=== PATIENT | male | born 1945 | race Caucasian/White ===

== ENCOUNTER 2019-08-11 10:52 | Emergency (ER) | payer MEDICARE, SELFPAY ==
[2019-08-11 11:02] VITALS: BP 144/98; PULSE 73; RESP 16; TEMP 36.6; O2SAT 100
--- NOTE | 2019-08-11 11:20 | ED.FALL ---
HPI - Fall General Chief Complaint: Fall Stated Complaint: rt arm/wrist/rib pain Time Seen by Provider: 08/11/19 11:20 Source: patient and RN notes reviewed Mode of arrival: ambulatory Limitations: no limitations History of Present Illness HPI Narrative: 74 old male presents with concern for right arm pain, right rib pain since he fell just prior to arrival. Reports falling on his right arm. Reports rib pain that is mild, does not worsen with deep breathing, is not tender. Reports he takes aspirin. Denies head injury. MD complaint: fall Related Data Home Medications Medication Instructions Recorded Confirmed aspirin 81 mg tablet,delayed 81 mg PO DAILY 06/05/19 release carvedilol 3.125 mg tablet 3.125 mg PO Q12H 06/05/19 coenzyme Q10 100 mg capsule 100 mg PO DAILY 06/05/19 hydrochlorothiazide 25 mg tablet 25 mg PO DAILY 06/05/19 losartan 50 mg tablet 50 mg PO DAILY 06/05/19 lutein 20 mg capsule 20 mg PO DAILY 06/05/19 montelukast 10 mg tablet 10 mg PO DAILY 06/05/19 omeprazole 20 mg capsule,delayed 20 mg PO DAILY 06/05/19 release pravastatin 20 mg tablet 20 mg PO DAILY 06/05/19 rivaroxaban 20 mg tablet 20 mg PO DAILY 06/05/19 Allergies Allergy/AdvReac Type Severity Reaction Status Date / Time fluticasone Allergy Unknown Verified 03/01/13 10:17 hydromorphone Allergy Unknown Delirium Verified 06/08/18 10:25 NSAIDS (Non-Steroidal Allergy Unknown Verified 06/08/18 10:28 Anti-Inflamma Penicillins Allergy Unknown Verified 01/10/18 11:37 salmeterol Allergy Unknown Verified 03/01/13 10:17 HYDROMORPHONE HCL AdvReac Intermediate HALLUCINATI Uncoded 04/29/19 09:16 ONS FLUTICASONE PROPIONATE AdvReac Mild SLEEPLESSNE Uncoded 04/29/19 09:16 SS SALMETEROL XINAFOATE AdvReac Mild SLEEPLESSNE Uncoded 04/29/19 09:16 SS Review of Systems Review of Systems: Narrative: CONSTITUTIONAL: Denies malaise, chills, sweats, or fever. CARDIOVASCULAR: Denies chest pain, palpitations, or edema. RESPIRATORY: Denies dyspnea. GASTROINTESTINAL: Denies abdominal pain GENITOURINARY: Denies hematuria. SKIN: Reports right arm swelling, bruising, mild tenderness MUSCULOSKELETAL: Denies back pain NEUROLOGIC: Denies numbness, weakness, or headache. All systems reviewed & are unremarkable except as noted in HPI and below PMFSH Social History Social History Smoking status: Never smoker Alcohol intake: never Comments At time of signature, agree with nursing past medical, surgical, social and family history. There is no relevant family history pertinent to the presenting complaint Exam Narrative: Exam Narrative: GENERAL: Well-appearing, well-nourished, and in no acute distress. HEAD: Normocephalic, atraumatic. EYES: PERRLA, conjunctivae clear NECK: Supple. CHEST: Clear to auscultation. No respiratory distress. HEART: Regular rate and rhythm. No murmur heard. Normal peripheral pulses. EXTREMITIES: Right forearm, wrist, digits of right hand have normal strength and sensation, normal range of motion. 5/5 strength with wrist and digit flexion and extension. Normal sensation with sensitivity to light touch and pain. Soft hematoma noted to the forearm approximately 6 cm x 4 cm in diameter. No open wounds, no skin tenting, no devitalized tissue or atrophy, no trophic changes, no obvious deformity, alignment normal, no point tenderness, nearby joints and structures intact. Distal pulses palpable and equal bilaterally, skin warm, dry, pink. Capillary refill less than 3 seconds. SKIN: Warm, dry, no rash. NEURO: Alert and oriented x3. PSYCH: Normal mood and affect Course Course Emergency Course: Discussed with patient low suspicion at this time for fracture due to minimal tenderness, no deformity, normal neurovascular exam. Patient agrees to no x-ray at this time. Patient understands reasons to follow-up with his doctor if symptoms worsen or do not improve. Patie
== END 2019-08-11 11:34 | disposition home or self-care (01) ==
PROVIDERS: Emergency Provider Nurse Practitioner; PCP Internal Medicine
DX: R07.81 Pleurodynia (principal); S50.11XA Contusion of right forearm, initial encounter; W19.XXXA Unspecified fall, initial encounter; Z86.73 Personal history of transient ischemic attack (TIA), and cerebral infarction without residual deficits; I48.91 Unspecified atrial fibrillation; I10 Essential (primary) hypertension; J45.909 Unspecified asthma, uncomplicated; M19.90 Unspecified osteoarthritis, unspecified site
CPT/HCPCS: 99212; G0463

== ENCOUNTER 2021-03-28 20:17 | Emergency (ER) | payer MEDICARE, SELFPAY ==
[2021-03-28 20:23] VITALS: BP 177/90; PULSE 97; RESP 18; TEMP 36.8; O2SAT 99
--- NOTE | 2021-03-28 21:39 | ED.GENADULT ---
HPI - General Adult General Chief complaint: Extremity Injury, Lower Stated complaint: varicose vein right leg bleeding.on blood thinners Time Seen by Provider: 03/28/21 21:23 History of Present Illness HPI narrative: Patient is a 75-year-old gentleman who presents the emergency department with chief complaint of bleeding varicose vein. Patient reports that he had a varicose vein on the medial aspect of his right lower extremity at the ankle. The patient states that it suddenly started pouring blood from the area patient reports that he applied direct pressure to the area and applied a pressure dressing patient states that he is on blood thinners and reports that he came to the ER active bleeding not stop after 15 minutes. Patient denies chest pain denies shortness of breath denies any other injuries. Patient reports the bleeding is currently controlled Related Data Home Medications Medication Instructions Recorded Confirmed aspirin 81 mg tablet,delayed 81 mg PO DAILY 06/05/19 01/24/21 release coenzyme Q10 100 mg capsule 100 mg PO DAILY 06/05/19 01/24/21 losartan 50 mg tablet 50 mg PO DAILY 06/05/19 01/24/21 lutein 20 mg capsule 20 mg PO DAILY 06/05/19 01/24/21 omeprazole 20 mg capsule,delayed 20 mg PO DAILY 06/05/19 01/24/21 release pravastatin 20 mg tablet 20 mg PO DAILY 06/05/19 01/24/21 rivaroxaban 20 mg tablet 20 mg PO DAILY 06/05/19 01/24/21 Allergies Allergy/AdvReac Type Severity Reaction Status Date / Time fluticasone Allergy Unknown Other Verified 03/28/21 20:27 hydromorphone Allergy Unknown Delirium Verified 03/28/21 20:27 NSAIDS (Non-Steroidal Allergy Unknown Other Verified 03/28/21 20:27 Anti-Inflamma Penicillins Allergy Unknown Palpitation Verified 03/28/21 20:27 s salmeterol Allergy Unknown Other Verified 03/28/21 20:27 HYDROMORPHONE HCL AdvReac Intermediate HALLUCINATI Uncoded 04/29/19 09:16 ONS FLUTICASONE PROPIONATE AdvReac Mild SLEEPLESSNE Uncoded 04/29/19 09:16 SS SALMETEROL XINAFOATE AdvReac Mild SLEEPLESSNE Uncoded 04/29/19 09:16 SS Review of Systems Review of Systems: A 10 system review of systems was completed on the patient and is negative except for what is stated in the HPI. Nursing and ancillary documentation was reviewed. [facility], [facility] Past Medical History Medical History (Updated 03/28/21 @ 21:49 by Brayden Lopez MD) Atrial fibrillation and flutter COPD (chronic obstructive pulmonary disease) Hypertension Pancreatitis Peripheral vascular disease Peripheral vertigo Transient ischemic attack Surgical History Surgical History History of cholecystectomy (~2013) History of femoropopliteal bypass (~2012) Status post total left knee replacement using cement (~06/07/18) Family History Family History Father Hypertension Mother Hypertension Family history of arthritis Other Family history of heart disease in male family member before age 55 Social History Social History Smoking status: Never smoker Alcohol intake: never Exam Narrative: GENERAL: Well-appearing, well-nourished, and in no acute distress. HEAD: Normocephalic, atraumatic. EYES: PERRLA and EOMI. ENT: Nares clear, no rhinorrhea or epistaxis. Mucous membranes moist. NECK: Supple. CHEST: Clear to auscultation. No respiratory distress. HEART: Regular rate and rhythm. No murmur heard. Normal peripheral pulses. ABDOMEN: Soft, nontender, nondistended, normal active bowel sounds. EXTREMITIES: Normal range of motion. No edema. SKIN: Warm, dry, no rash. Small punctate lesion in the medial aspect of the right ankle. At this time there is no bleeding after the dressing was removed and the wound was not lowered NEURO: No focal deficits. Alert and oriented x3. PSYCH: Normal mood and affect. Course
[2021-03-28] MEDS: CELLULOSE OXIDIZED 2 x 3 INCH 1 PKT XX (22:08)
[2021-03-28 22:24] VITALS: PULSE 68; RESP 16; O2SAT 96
== END 2021-03-28 22:25 | disposition home or self-care (01) ==
PROVIDERS: Emergency Provider Emergency Medicine; PCP Internal Medicine
DX: I83.891 Varicose veins of right lower extremity with other complications (principal); I48.91 Unspecified atrial fibrillation; J44.9 Chronic obstructive pulmonary disease, unspecified; I10 Essential (primary) hypertension; I73.9 Peripheral vascular disease, unspecified; Z79.82 Long term (current) use of aspirin; Z79.899 Other long term (current) drug therapy; Z87.19 Personal history of other diseases of the digestive system; Z86.73 Personal history of transient ischemic attack (TIA), and cerebral infarction without residual deficits
CPT/HCPCS: 99283

== ENCOUNTER 2021-04-22 01:28 | Day surgery (SDC) | payer MEDICARE, SELFPAY ==
[2021-04-10 13:24] VITALS: BMI 31.2
[2021-04-22 08:55] VITALS: BP 167/87; PULSE 70; RESP 18; TEMP 36.2; O2SAT 98
[2021-04-22] MEDS: LACTATED RINGERS 1,000 ML 150 ML IV CONT (09:09)
--- NOTE | 2021-04-22 09:21 | WPDANESEPPF ---
Anes - Initial Pre Proc Eval Procedure: Operation Date: 04/22/21 10:00 Proposed Procedures p Colonoscopy - Lázaro Barton MD Date/Time: 04/22/21 09:21 Surgeon: Lázaro Barton MD Pre Op Diagnosis: positive stool hemoccult Patient Data Age: 75 Gender: M Height: 1.91 m Weight: 113.5 kg Last Vital Signs Temp 97.1 F L 04/22/21 08:55 Pulse 70 04/22/21 08:55 Resp 18 04/22/21 08:55 BP 167/87 H 04/22/21 08:55 Pulse Ox 98 04/22/21 08:55 Allergies Allergy/AdvReac Type Severity Reaction Status Date / Time salmeterol Allergy Intermediate Other Verified 04/22/21 08:49 fluticasone Allergy Unknown Other Verified 04/22/21 08:49 hydromorphone AdvReac Severe nightmares Verified 04/22/21 08:49 NSAIDS (Non-Steroidal AdvReac Severe Other Verified 04/22/21 08:49 Anti-Inflamma Penicillins AdvReac Intermediate Palpitation Verified 04/22/21 08:49 s Home Medications Medication Instructions Recorded Confirmed Type aspirin 81 mg tablet,delayed 81 mg PO DAILY 06/05/19 04/10/21 History release coenzyme Q10 100 mg capsule 100 mg PO DAILY 06/05/19 04/10/21 History losartan 50 mg tablet 50 mg PO BID 06/05/19 04/10/21 History lutein 20 mg capsule 20 mg PO DAILY 06/05/19 04/10/21 History omeprazole 20 mg capsule,delayed 20 mg PO DAILY 06/05/19 04/10/21 History release pravastatin 20 mg tablet 20 mg PO DAILY 06/05/19 04/10/21 History rivaroxaban 20 mg tablet 20 mg PO DAILY 06/05/19 04/10/21 History fluticasone propionate 50 1 spray NASAL DAILY #15.8 ml 06/22/19 04/10/21 Rx mcg/actuation nasal spray,suspension montelukast 10 mg tablet 10 mg PO DAILY #90 tablet 12/20/20 04/10/21 Rx Alteril 1 cap PO HS 04/10/21 04/10/21 History albuterol sulfate [ProAir HFA] 1 inh INHALATION Q4H PRN 04/10/21 04/10/21 History budesonide-formoterol [Symbicort] 2 puff INHALATION BID 04/10/21 04/10/21 History carvedilol 6.25 mg PO BID 04/10/21 04/10/21 History hydrochlorothiazide 12.5 mg PO DAILY 04/10/21 04/10/21 History terazosin 5 mg PO HS 04/10/21 04/10/21 History Patient hx anesthesia problems: none Family hx anesthesia problems: none Results Review: All pre-operative results and documents have been reviewed as part of the pre-operative evaluation. [facility] Past Medical History Medical History (Updated 03/29/21 @ 00:00 by [facility]) Atrial fibrillation and flutter COPD (chronic obstructive pulmonary disease) Hypertension Pancreatitis Peripheral vascular disease Peripheral vertigo Transient ischemic attack Surgical History Surgical History History of cholecystectomy (~2013) History of femoropopliteal bypass (~2012) Status post total left knee replacement using cement (~06/07/18) Family History Family History Father Hypertension Mother Hypertension Family history of arthritis Other Family history of heart disease in male family member before age 55 Social History Social History Smoking status: Never smoker Alcohol intake: current Drinks per week: 3 Substance use: never Substance use type: does not use Living arrangements: with family Spiritual care concerns: No Anes - Eval Final PreProcedure Day of Procedure 04/22/21 09:21 Patient weight: obese Heart: regular rate and rhythm Lungs: clear to auscultation Airway: Mallampati scale class III Neurological: alert and oriented Last oral intake: >/= 8 hours ASA classification: III Emergent: no Anesthetic plan: proceed Anesthesia type and monitoring: general GIVS and standard monitoring Results Review: All pre-operative results and documents have been reviewed as part of the pre-operative evaluation. Informed Consent: The patient's anesthetic plan and its attendant risks and benefits were discussed with the patient/
--- NOTE | 2021-04-22 10:21 | PM.HPGS ---
History of Present Illness History of Present Illness Consent: Risks, benefits, and alternatives have been discussed and questions answered. Patient agrees to proceed with procedure. Chief complaint: positive stool hemoccult Narrative: Jean Mcintyre is a 75 year old male here for first colonoscopy, recently had FOBT + Review of Systems Constitutional: Constitutional: Denies headache(s) and Denies weakness Eyes: Eyes: Denies blurry vision ENT: Reports Normal hearing present, Denies headache(s) and Denies neck pain Cardiovascular: Cardiovascular: Denies chest pain and Denies dyspnea Respiratory: Respiratory: Denies dyspnea Gastrointestinal: Gastrointestinal: Reports no additional gastrointestinal complaints Genitourinary: Genitourinary: Denies dysuria Musculoskeletal: Musculoskeletal: Denies neck pain Integumentary/Breasts: Skin/Breast: Denies dry skin Neurologic: Reports Normal hearing present, Denies headache(s) and Denies weakness Psychiatric: Psychiatric: Denies anxiety Endocrine: Endocrine: Denies change in body appearance Hematologic/Lymphatic: Hematologic/Lymphatic: Denies easy bleeding Allergic/Immunologic: Allergic/Immunologic: Denies urticaria PMFSH Past Medical History Medical History (Updated 04/22/21 @ 10:21 by Lázaro Barton MD) Atrial fibrillation and flutter COPD (chronic obstructive pulmonary disease) Hypertension Occult blood positive stool Pancreatitis Peripheral vascular disease Peripheral vertigo Transient ischemic attack Surgical History Surgical History History of cholecystectomy (~2013) History of femoropopliteal bypass (~2012) Status post total left knee replacement using cement (~06/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) Family History Family History Father Hypertension Mother Hypertension Family history of arthritis Other Family history of heart disease in male family member before age 55 Social History Social History Smoking status: Never smoker Alcohol intake: current Drinks per week: 3 Substance use: never Substance use type: does not use Living arrangements: with family Spiritual care concerns: No Meds Home Medications and Allergies Home Medications Medication Instructions Recorded Confirmed Type aspirin 81 mg tablet,delayed 81 mg PO DAILY 06/05/19 04/10/21 History release coenzyme Q10 100 mg capsule 100 mg PO DAILY 06/05/19 04/10/21 History losartan 50 mg tablet 50 mg PO BID 06/05/19 04/10/21 History lutein 20 mg capsule 20 mg PO DAILY 06/05/19 04/10/21 History omeprazole 20 mg capsule,delayed 20 mg PO DAILY 06/05/19 04/10/21 History release pravastatin 20 mg tablet 20 mg PO DAILY 06/05/19 04/10/21 History rivaroxaban 20 mg tablet 20 mg PO DAILY 06/05/19 04/10/21 History fluticasone propionate 50 1 spray NASAL DAILY #15.8 ml 06/22/19 04/10/21 Rx mcg/actuation nasal spray,suspension montelukast 10 mg tablet 10 mg PO DAILY #90 tablet 12/20/20 04/10/21 Rx Alteril 1 cap PO HS 04/10/21 04/10/21 History albuterol sulfate [ProAir HFA] 1 inh INHALATION Q4H PRN 04/10/21 04/10/21 History budesonide-formoterol [Symbicort] 2 puff INHALATION BID 04/10/21 04/10/21 History carvedilol 6.25 mg PO BID 04/10/21 04/10/21 History hydrochlorothiazide 12.5 mg PO DAILY 04/10/21 04/10/21 History terazosin 5 mg PO HS 04/10/21 04/10/21 History Allergies Allergy/AdvReac Type Severity Reaction Status Date / Time salmeterol Allergy Intermediate Other Verified 04/22/21 08:49 fluticasone Allergy Unknown Other Verified 04/22/21 08:49 hydromorphone AdvReac Severe nightmares Verified 04/22/21 08:49 NSAIDS (Non-Steroidal AdvReac Severe Other Verified 04/22/21 08:49 Anti-Inflamma Penicillins AdvReac Intermediate Palpitation Verified 04/22/21 08:49 s Vital Signs Vital Si
[2021-04-22 11:00] VITALS: BP 139/79; PULSE 70; RESP 18; O2SAT 96
[2021-04-22 11:10] VITALS: BP 138/85; PULSE 60; RESP 20; O2SAT 97
[2021-04-22 11:20] VITALS: BP 142/95; PULSE 63; RESP 21; O2SAT 97
== END 2021-04-22 11:25 | disposition home or self-care (01) ==
PROVIDERS: PCP Internal Medicine; Visit Provider Internal Medicine Gastroenterology
PROC: 0DJD8ZZ Inspection of Lower Intestinal Tract, Via Natural or Artificial Opening Endoscopic (ICD-10-PCS; CPT 45378; principal; 2021-04-22 10:00)
DX: R19.5 Other fecal abnormalities (principal); D12.2 Benign neoplasm of ascending colon; K57.30 Diverticulosis of large intestine without perforation or abscess without bleeding; K64.8 Other hemorrhoids; I48.91 Unspecified atrial fibrillation; I48.92 Unspecified atrial flutter; J44.9 Chronic obstructive pulmonary disease, unspecified; I10 Essential (primary) hypertension; I73.9 Peripheral vascular disease, unspecified; Z86.73 Personal history of transient ischemic attack (TIA), and cerebral infarction without residual deficits; E66.9 Obesity, unspecified; Z68.31 Body mass index [BMI] 31.0-31.9, adult; Z79.01 Long term (current) use of anticoagulants; Z79.82 Long term (current) use of aspirin
CPT/HCPCS: 45385; 88305; J7120

== ENCOUNTER 2021-08-25 02:19 | Day surgery (SDC) | payer MEDICARE, SELFPAY ==
[2021-08-19 12:59] VITALS: BMI 31.8
[2021-08-25 07:46] VITALS: BP 178/105; PULSE 72; RESP 18; TEMP 36.8; O2SAT 98
[2021-08-25] MEDS: LACTATED RINGERS 1,000 ML 150 ML IV CONT (08:00)
--- NOTE | 2021-08-25 08:10 | PM.HPGS ---
History of Present Illness History of Present Illness Consent: Risks, benefits, and alternatives have been discussed and questions answered. Patient agrees to proceed with procedure. Chief complaint: FRANCES Narrative: Jean Mcintyre is a 76 year old male with frances, hb 8.3 (using xarelto), denies overt gib. Had screening colonoscopy 2020 that showed small polyps and diverticulosis. Denies abd pain. Review of Systems Constitutional: Constitutional: Denies headache(s) and Denies weakness Eyes: Eyes: Denies blurry vision ENT: Reports Normal hearing present, Denies headache(s) and Denies neck pain Cardiovascular: Cardiovascular: Denies chest pain and Denies dyspnea Respiratory: Respiratory: Denies dyspnea Gastrointestinal: Gastrointestinal: Reports no additional gastrointestinal complaints Genitourinary: Genitourinary: Denies dysuria Musculoskeletal: Musculoskeletal: Denies neck pain Integumentary/Breasts: Skin/Breast: Denies dry skin Neurologic: Reports Normal hearing present, Denies headache(s) and Denies weakness Psychiatric: Psychiatric: Denies anxiety Endocrine: Endocrine: Denies change in body appearance Hematologic/Lymphatic: Hematologic/Lymphatic: Denies easy bleeding Allergic/Immunologic: Allergic/Immunologic: Denies urticaria [facility] Past Medical History Medical History (Updated 08/25/21 @ 08:12 by Lázaro Barton MD) Atrial fibrillation and flutter COPD (chronic obstructive pulmonary disease) Hypertension Iron deficiency anemia Occult blood positive stool Pancreatitis Peripheral vascular disease Peripheral vertigo Transient ischemic attack Surgical History Surgical History History of cholecystectomy (~2013) History of femoropopliteal bypass (~2012) Status post total left knee replacement using cement (~06/07/18) Family History Family History Father Hypertension Mother Hypertension Family history of arthritis Other Family history of heart disease in male family member before age 55 Social History Social History Smoking status: Never smoker Alcohol intake: current Drinks per week: 3 Substance use: never Substance use type: does not use Living arrangements: with family Spiritual care concerns: No Meds Home Medications and Allergies Home Medications Medication Instructions Recorded Confirmed Type aspirin 81 mg tablet,delayed 81 mg PO DAILY 06/05/19 08/19/21 History release coenzyme Q10 100 mg capsule 100 mg PO DAILY 06/05/19 08/19/21 History losartan 50 mg tablet 50 mg PO BID 06/05/19 08/19/21 History lutein 20 mg capsule 20 mg PO DAILY 06/05/19 08/19/21 History omeprazole 20 mg capsule,delayed 20 mg PO DAILY 06/05/19 08/19/21 History release pravastatin 20 mg tablet 20 mg PO DAILY 06/05/19 08/19/21 History rivaroxaban 20 mg tablet 20 mg PO DAILY 06/05/19 08/25/21 History fluticasone propionate 50 1 spray NASAL DAILY #15.8 ml 06/22/19 08/19/21 Rx mcg/actuation nasal spray,suspension montelukast 10 mg tablet 10 mg PO DAILY #90 tablet 12/20/20 08/19/21 Rx Alteril 1 cap PO HS 04/10/21 08/19/21 History albuterol sulfate [ProAir HFA] 1 inh INHALATION Q4H PRN 04/10/21 08/19/21 History hydrochlorothiazide 12.5 mg PO DAILY 04/10/21 08/19/21 History carvedilol 6.25 mg tablet 6.25 mg PO BID #180 tablet 05/26/21 08/19/21 Rx budesonide-formoterol HFA 80 2 puff INHALATION BID #10.2 g 07/28/21 08/19/21 Rx mcg-4.5 mcg/actuation aerosol inhaler terazosin 5 mg capsule 5 mg PO HS #90 cap 07/28/21 08/19/21 Rx ferrous sulfate 325 mg (65 mg 325 mg PO BID #180 tablet 07/30/21 08/19/21 Rx iron) tablet Allergies Allergy/AdvReac Type Severity Reaction Status Date / Time hydromorphone Allergy Severe nightmares Verified 08/25/21 07:44 fluticasone Allergy Intermediate Other Verifi
[2021-08-25 08:22] VITALS: BP 139/75; PULSE 66; RESP 18; O2SAT 97
[2021-08-25 08:32] VITALS: BP 144/89; PULSE 76; RESP 16; O2SAT 95
[2021-08-25 08:42] VITALS: BP 156/89; PULSE 62; RESP 18; O2SAT 97
== END 2021-08-25 08:55 | disposition home or self-care (01) ==
PROVIDERS: PCP Internal Medicine; Visit Provider Internal Medicine Gastroenterology
PROC: 0DJ08ZZ Inspection of Upper Intestinal Tract, Via Natural or Artificial Opening Endoscopic (ICD-10-PCS; CPT 43235; principal; 2021-08-25 08:30)
DX: D50.0 Iron deficiency anemia secondary to blood loss (chronic) (principal); K29.70 Gastritis, unspecified, without bleeding; J44.9 Chronic obstructive pulmonary disease, unspecified; I48.91 Unspecified atrial fibrillation; I10 Essential (primary) hypertension; I73.9 Peripheral vascular disease, unspecified; H81.399 Other peripheral vertigo, unspecified ear; Z86.73 Personal history of transient ischemic attack (TIA), and cerebral infarction without residual deficits; Z90.49 Acquired absence of other specified parts of digestive tract; Z95.5 Presence of coronary angioplasty implant and graft; Z79.01 Long term (current) use of anticoagulants; Z79.82 Long term (current) use of aspirin; Z79.51 Long term (current) use of inhaled steroids
CPT/HCPCS: 43239; 88305; J2001; J2704; J7120

== ENCOUNTER 2021-09-08 06:14 | Outpatient (CLI) | payer MEDICARE, SELFPAY ==
--- NOTE | 2021-08-27 13:36 | PC.NURSE ---
SPOKE WITH DR. HILTON , PT DOES NOT WANT TO TAKE THE MAG.CITRATE AND MAY CANCEL IF HE HAS TOO, DR. HILTON IS OKAY WITH PT NOT DOING THE MAG. CITRATE THE NIGHT BEFORE THE PROCEDURE.
--- NOTE | 2021-09-08 07:07 | SUR.OPER ---
Patient brought to GI Lab. Instructions for patient undergoing Capsule Endoscopy reviewed with patient. Consent form signed. Sensor array applied to patient's abdomen and connected to recorded. Patient swallowed capsule with 12 ozs of water infused with Simethicone. Patient instructed they may have clear liquids at 0845 this AM and eat or drink at 1045 this AM. Patient instructed to return to GI Lab at 1500 this afternoon for removal of recording device and to call [phone] or to return to the hospital if any nausea and vomiting or abdominal pain is experienced.
--- NOTE | 2021-09-08 15:15 | SUR.OPER ---
Patient returned to the GI Lab at 1509 for recorder box removal. Recorder equipment removed intact. Patient voiced no complaints. States they have understanding of instructions. Patient left ambulatory.
== END 2021-09-08 06:15 | disposition home or self-care (01) ==
PROVIDERS: PCP Internal Medicine; Visit Provider Internal Medicine Gastroenterology
PROC: 0DJ07ZZ Inspection of Upper Intestinal Tract, Via Natural or Artificial Opening (ICD-10-PCS; CPT 91110; principal; 2021-09-08 07:00)
DX: D64.9 Anemia, unspecified (principal); K31.7 Polyp of stomach and duodenum
CPT/HCPCS: 91110

== ENCOUNTER → 2021-10-27 08:23 | Outpatient (CLI) | payer MEDICARE, SELFPAY ==
[2021-10-27 12:07] LABS: Influenza A QL RT-PCR Negative (Negative); Influenza B QL RT-PCR Negative (Negative); SARS-CoV-2 RNA PCR Negative
== END ==
PROVIDERS: PCP Internal Medicine; Visit Provider Internal Medicine
DX: Z20.822 Contact with and (suspected) exposure to COVID-19 (principal)
CPT/HCPCS: 87502; C9803; U0003; U0005

== ENCOUNTER 2021-11-05 00:40 | Day surgery (SDC) | payer MEDICARE, SELFPAY ==
[2021-11-03 10:46] VITALS: BMI 30.6
[2021-11-05 08:20] VITALS: BP 137/82; PULSE 64; RESP 18; TEMP 36.2; O2SAT 96; BMI 30.4
[2021-11-05] MEDS: LACTATED RINGERS 1,000 ML 150 ML IV CONT (08:41)
--- NOTE | 2021-11-05 09:15 | WPDANESEPPF ---
Anes - Initial Pre Proc Eval Procedure: Operation Date: 11/05/21 09:30 Proposed Procedures p Esophagogastroduodenoscopy With Push Enteroscopy, Biopsy, Polypectomy - Lázaro Barton MD Date/Time: 11/05/21 09:15 Surgeon: Lázaro Barton MD Pre Op Diagnosis: duodenal polyp, LISA Patient Data Age: 76 Gender: M Height: 1.91 m Weight: 110.3 kg Last Vital Signs Temp 97.2 F L 11/05/21 08:20 Pulse 64 11/05/21 08:20 Resp 18 11/05/21 08:20 BP 137/82 11/05/21 08:20 Pulse Ox 96 11/05/21 08:20 Allergies Allergy/AdvReac Type Severity Reaction Status Date / Time hydromorphone Allergy Severe nightmares Verified 11/05/21 08:30 fluticasone Allergy Intermediate Other Verified 11/05/21 08:30 Penicillins Allergy Intermediate Palpitation Verified 11/05/21 08:30 s salmeterol Allergy Intermediate Other Verified 11/05/21 08:30 NSAIDS (Non-Steroidal AdvReac Severe Other Verified 11/05/21 08:30 Anti-Inflamma Home Medications Medication Instructions Recorded Confirmed Type aspirin 81 mg tablet,delayed 81 mg PO DAILY 06/05/19 11/05/21 History release coenzyme Q10 100 mg capsule 100 mg PO DAILY 06/05/19 11/05/21 History losartan 50 mg tablet 50 mg PO BID 06/05/19 11/05/21 History lutein 20 mg capsule 20 mg PO DAILY 06/05/19 11/05/21 History omeprazole 20 mg capsule,delayed 20 mg PO DAILY 06/05/19 11/05/21 History release pravastatin 20 mg tablet 20 mg PO DAILY 06/05/19 11/05/21 History rivaroxaban 20 mg tablet 20 mg PO DAILY 06/05/19 11/05/21 History fluticasone propionate 50 1 spray NASAL DAILY #15.8 ml 06/22/19 11/05/21 Rx mcg/actuation nasal spray,suspension montelukast 10 mg tablet 10 mg PO DAILY #90 tablet 12/20/20 11/05/21 Rx Alteril 1 cap PO HS 04/10/21 11/05/21 History albuterol sulfate [ProAir HFA] 1 inh INHALATION Q4H PRN 04/10/21 11/05/21 History hydrochlorothiazide 25 mg tablet 12.5 mg PO DAILY #90 tablet 10/20/21 11/05/21 Rx Symbicort 80 mcg-4.5 mcg/actuation 2 puff INHALATION BID #10.2 g NS 10/27/21 11/05/21 Rx HFA aerosol inhaler azithromycin 250 mg tablet See Rx Instructions PO .COMPLEX #6 10/27/21 11/05/21 Rx tablet carvedilol 6.25 mg tablet 6.25 mg PO BID #180 tablet 10/27/21 11/05/21 Rx terazosin 5 mg capsule 5 mg PO HS #90 cap 10/27/21 11/05/21 Rx ferrous sulfate 325 mg (65 mg 325 mg PO BID #180 tablet 10/29/21 11/05/21 Rx iron) tablet Patient hx anesthesia problems: none Family hx anesthesia problems: none Results Review: All pre-operative results and documents have been reviewed as part of the pre-operative evaluation. [facility] Past Medical History Medical History (Updated 08/25/21 @ 08:12 by Lázaro Barton MD) Atrial fibrillation and flutter COPD (chronic obstructive pulmonary disease) Hypertension Iron deficiency anemia Occult blood positive stool Pancreatitis Peripheral vascular disease Peripheral vertigo Transient ischemic attack Surgical History Surgical History History of cholecystectomy (~2013) History of femoropopliteal bypass (~2012) Status post total left knee replacement using cement (~06/07/18) Family History Family History Father Hypertension Mother Hypertension Family history of arthritis Other Family history of heart disease in male family member before age 55 Social History Social History Smoking status: Never smoker Alcohol intake: current Drinks per week: 3 Substance use: never Substance use type: does not use Living arrangements: with family Spiritual care concerns: No Anes - Eval Final PreProcedure Day of Procedure 11/05/21 09:15 Patient weight: obese Heart: irregular rhythm Lungs: clear to auscultation Airway: Mallampati scale class III Neurological: alert and oriented Last oral intake:
--- NOTE | 2021-11-05 09:49 | PM.HPGS ---
History of Present Illness History of Present Illness Consent: Risks, benefits, and alternatives have been discussed and questions answered. Patient agrees to proceed with procedure. Chief complaint: duodenal polyp, LISA Narrative: Jean Mcintyre is a 76 year old male with recent SB capsule endoscopy shows what seems to be a polyp in distal duodenum- no good explanation for his LISA though other than gastritis in setting of xarelto, denies recent gib. Review of Systems Constitutional: Constitutional: Denies headache(s) and Denies weakness Eyes: Eyes: Denies blurry vision ENT: Reports Normal hearing present, Denies headache(s) and Denies neck pain Cardiovascular: Cardiovascular: Denies chest pain and Denies dyspnea Respiratory: Respiratory: Denies dyspnea Gastrointestinal: Gastrointestinal: Reports no additional gastrointestinal complaints Genitourinary: Genitourinary: Denies dysuria Musculoskeletal: Musculoskeletal: Denies neck pain Integumentary/Breasts: Skin/Breast: Denies dry skin Neurologic: Reports Normal hearing present, Denies headache(s) and Denies weakness Psychiatric: Psychiatric: Denies anxiety Endocrine: Endocrine: Denies change in body appearance Hematologic/Lymphatic: Hematologic/Lymphatic: Denies easy bleeding Allergic/Immunologic: Allergic/Immunologic: Denies urticaria PMF Past Medical History Medical History (Updated 11/05/21 @ 09:50 by Lázaro Barton MD) Atrial fibrillation and flutter COPD (chronic obstructive pulmonary disease) Hypertension Iron deficiency anemia Occult blood positive stool Pancreatitis Peripheral vascular disease Peripheral vertigo Polyp of small intestine Transient ischemic attack Surgical History Surgical History History of cholecystectomy (~2013) History of femoropopliteal bypass (~2012) Status post total left knee replacement using cement (~06/07/18) Family History Family History Father Hypertension Mother Hypertension Family history of arthritis Other Family history of heart disease in male family member before age 55 Social History Social History Smoking status: Never smoker Alcohol intake: current Drinks per week: 3 Substance use: never Substance use type: does not use Living arrangements: with family Spiritual care concerns: No Meds Home Medications and Allergies Home Medications Medication Instructions Recorded Confirmed Type aspirin 81 mg tablet,delayed 81 mg PO DAILY 06/05/19 11/05/21 History release coenzyme Q10 100 mg capsule 100 mg PO DAILY 06/05/19 11/05/21 History losartan 50 mg tablet 50 mg PO BID 06/05/19 11/05/21 History lutein 20 mg capsule 20 mg PO DAILY 06/05/19 11/05/21 History omeprazole 20 mg capsule,delayed 20 mg PO DAILY 06/05/19 11/05/21 History release pravastatin 20 mg tablet 20 mg PO DAILY 06/05/19 11/05/21 History rivaroxaban 20 mg tablet 20 mg PO DAILY 06/05/19 11/05/21 History fluticasone propionate 50 1 spray NASAL DAILY #15.8 ml 06/22/19 11/05/21 Rx mcg/actuation nasal spray,suspension montelukast 10 mg tablet 10 mg PO DAILY #90 tablet 12/20/20 11/05/21 Rx Alteril 1 cap PO HS 04/10/21 11/05/21 History albuterol sulfate [ProAir HFA] 1 inh INHALATION Q4H PRN 04/10/21 11/05/21 History hydrochlorothiazide 25 mg tablet 12.5 mg PO DAILY #90 tablet 10/20/21 11/05/21 Rx Symbicort 80 mcg-4.5 mcg/actuation 2 puff INHALATION BID #10.2 g NS 10/27/21 11/05/21 Rx HFA aerosol inhaler azithromycin 250 mg tablet See Rx Instructions PO .COMPLEX #6 10/27/21 11/05/21 Rx tablet carvedilol 6.25 mg tablet 6.25 mg PO BID #180 tablet 10/27/21 11/05/21 Rx terazosin 5 mg capsule 5 mg PO HS #90 cap 10/27/21 11/05/21 Rx ferrous sulfate 325 mg (65 mg 325 mg PO BID #180 tablet 10/29/21 11/05/21 Rx iron) tablet
[2021-11-05 10:15] VITALS: BP 123/72; PULSE 67; RESP 25; O2SAT 94
[2021-11-05 10:25] VITALS: BP 118/80; PULSE 69; RESP 26; O2SAT 94
[2021-11-05 10:35] VITALS: BP 129/85; PULSE 64; RESP 19; O2SAT 94
== END 2021-11-05 10:49 | disposition home or self-care (01) ==
PROVIDERS: PCP Internal Medicine; Visit Provider Internal Medicine Gastroenterology
PROC: 0DJ08ZZ Inspection of Upper Intestinal Tract, Via Natural or Artificial Opening Endoscopic (ICD-10-PCS; CPT 43235; principal; 2021-11-05 09:30)
DX: K31.7 Polyp of stomach and duodenum (principal); D50.9 Iron deficiency anemia, unspecified; I48.91 Unspecified atrial fibrillation; I48.92 Unspecified atrial flutter; J44.9 Chronic obstructive pulmonary disease, unspecified; I10 Essential (primary) hypertension; I73.9 Peripheral vascular disease, unspecified; Z86.73 Personal history of transient ischemic attack (TIA), and cerebral infarction without residual deficits; Z79.82 Long term (current) use of aspirin; Z79.01 Long term (current) use of anticoagulants; Z79.51 Long term (current) use of inhaled steroids; E66.9 Obesity, unspecified; Z68.30 Body mass index [BMI] 30.0-30.9, adult
CPT/HCPCS: 43236; 43251; 88305; J2704; J7120

== ENCOUNTER 2022-02-08 13:39 | Emergency (ER) | payer MEDICARE, SELFPAY ==
[2022-02-08 13:53] VITALS: BP 176/108; PULSE 61; RESP 16; TEMP 36.6; O2SAT 96
--- NOTE | 2022-02-08 13:54 | ED.CHESTPAIN ---
HPI - Chest Pain General Chief Complaint: Chest Pain Stated Complaint: CHEST PAIN/INDIGESTION Time Seen by Provider: 02/08/22 13:52 Mode of arrival: ambulatory Limitations: no limitations History of Present Illness HPI narrative: 76-year-old male presents with concern for chest pain, indigestion, belching that started at 6 AM. He denies diaphoresis, shortness of breath, pain radiating, nausea, vomiting, diarrhea, back pain. Denies cough or upper respiratory symptoms. He reports he did not take any uaxp-[id number] medications for his symptoms. He reports a history of A. fib, denies any other cardiac history. He denies frequent episodes of chest pain or indigestion in the recent past. He denies any exacerbating or relieving factors to his pain MD complaint: chest pain Related Data Home Medications Medication Instructions Recorded Confirmed aspirin 81 mg tablet,delayed 81 mg PO DAILY 06/05/19 11/05/21 release (Adult Aspirin Regimen) coenzyme Q10 100 mg capsule (Co 100 mg PO DAILY 06/05/19 11/05/21 Q-10) losartan 50 mg tablet 50 mg PO BID 06/05/19 11/05/21 lutein 20 mg capsule 20 mg PO DAILY 06/05/19 11/05/21 omeprazole 20 mg capsule,delayed 20 mg PO DAILY 06/05/19 11/05/21 release pravastatin 20 mg tablet 20 mg PO DAILY 06/05/19 11/05/21 rivaroxaban 20 mg tablet (Xarelto) 20 mg PO DAILY 06/05/19 11/05/21 Alteril 1 cap PO HS 04/10/21 11/05/21 albuterol sulfate 90 mcg/actuation 1 inh inhalation Q4H PRN Shortness 04/10/21 11/05/21 aerosol inhaler (ProAir HFA) Of Breath Or Wheezing Allergies Allergy/AdvReac Type Severity Reaction Status Date / Time hydromorphone Allergy Severe nightmares Verified 02/08/22 13:56 fluticasone Allergy Intermediate Other Verified 02/08/22 13:56 Penicillins Allergy Intermediate Palpitation Verified 02/08/22 13:56 s salmeterol Allergy Intermediate Other Verified 02/08/22 13:56 NSAIDS (Non-Steroidal AdvReac Severe Other Verified 02/08/22 13:56 Anti-Inflamma Review of Systems Review of Systems: CONSTITUTIONAL: Denies malaise, chills, sweats, or fever. ENT: Denies rhinorrhea, congestion, sinus pain, otalgia or sore throat. CARDIOVASCULAR: Reports bilateral anterior chest pain. Denies edema. RESPIRATORY: Denies cough or dyspnea. GASTROINTESTINAL: Denies abdominal pain, nausea, vomiting, diarrhea, bloody, or mucous stools.. Reports indigestion and belching SKIN: Denies rash or itching. MUSCULOSKELETAL: Denies back pain, joint pain, or myalgia. NEUROLOGIC: Denies numbness, weakness, or headache. All systems reviewed & are unremarkable except as noted in HPI and below PMFSH Past Medical History Medical History (Updated 02/08/22 @ 14:24 by Amira Sandoval NP) Atrial fibrillation and flutter COPD (chronic obstructive pulmonary disease) Hypertension Iron deficiency anemia Occult blood positive stool Pancreatitis Peripheral vascular disease Peripheral vertigo Polyp of small intestine Transient ischemic attack Surgical History Surgical History History of cholecystectomy (~2013) History of femoropopliteal bypass (~2012) Status post total left knee replacement using cement (~06/07/18) Family History Family History Father Hypertension Mother Hypertension Family history of arthritis Other Family history of heart disease in male family member before age 55 Social History Social History Smoking status: Never smoker Alcohol intake: current Drinks per week: 3 Substance use: never Substance use type: does not use Spiritual care concerns: No Comments At time of signature, agree with nursing past medical, surgical, social and family history. There is no relevant family history pertinent to the presenting complaint Exam Narrative: GENERAL: Well-appearing, well-nourished, and in no a
[2022-02-08] MEDS: LIDOCAINE HCL 2% VISC SOLN 15 ML UDC PO (14:01)
[2022-02-08] MEDS: MAG HYDROX/AL HYDROX/SIMETH 30 ML UDC PO (14:01)
--- NOTE | 2022-02-08 14:02 | ECG_ITS ---
Measurements Intervals [place] Rate: 60 P: NV: 0 QRS: -17 QRSD: 108 T: 13 QT: 440 QTc: 441 Interpretive Statements ATRIAL FIBRILLATION INCOMPLETE RIGHT BUNDLE BRANCH BLOCK CANNOT RULE OUT SEPTAL INFARCT, AGE INDETERMINATE ABNORMAL ECG Electronically Signed On 02-08-2022 17:21:34 CDT by Poncho COATES
[2022-02-08 14:28] VITALS: BP 156/88; PULSE 67; RESP 16; O2SAT 96
== END 2022-02-08 14:28 | disposition short-term general hospital (02) ==
PROVIDERS: Emergency Provider Nurse Practitioner
DX: R07.9 Chest pain, unspecified (principal); I48.91 Unspecified atrial fibrillation; I45.10 Unspecified right bundle-branch block; J44.9 Chronic obstructive pulmonary disease, unspecified; I10 Essential (primary) hypertension; I73.9 Peripheral vascular disease, unspecified; Z86.73 Personal history of transient ischemic attack (TIA), and cerebral infarction without residual deficits; Z96.652 Presence of left artificial knee joint; Z79.82 Long term (current) use of aspirin; D50.9 Iron deficiency anemia, unspecified
CPT/HCPCS: 93005; 99214; A9270; G0463

== ENCOUNTER 2022-02-08 14:43 | Observation (INO) | payer MEDICARE, SELFPAY ==
[2022-02-08] VITALS (8 sets, daily range): BP systolic 162–180; BP diastolic 57–108; PULSE 64–106; RESP 12–20; TEMP 36.1–36.8; O2SAT 91–100; BMI 31.4
--- NOTE | ~2022-02-08 | XR_ITS ---
EXAMINATION: XR chest 2V Exam Date/Time: 02/08/2022 15:05 CDT HISTORY: chest pain Comparison: 08/08/2018. RESULT: Lines, tubes, and devices: None. Lungs and pleura: Clear. Cardiomediastinal silhouette: Stable. Other: No acute osseous or upper abdominal finding. IMPRESSION: No acute cardiopulmonary process. Reviewed, dictated and finalized at location K.
--- NOTE | 2022-02-08 14:48 | ECG_ITS ---
Rate 57 IN 0 QRSd 111 QT 439 QTc 430 --[place]-- P QRS -25 T 9 ATRIAL FIBRILLATION WITH SLOW VENTRICULAR RESPONSE COMPARED TO ECG 02/08/2022 13:53:05 NO SIGNIFICANT CHANGES Electronically Signed On 02-10-2022 11:34:29 CDT by Abhay COATES
[2022-02-08 17:39] LABS: Basophils Percent Auto 0.4 % (0.2-1.2); Eosinophils Absolute Auto 0.1 K/mm3 (0-0.3); Hematocrit 39.5 % (42.0-52.0); Hemoglobin 13.2 g/dL (14.0-18.0); Immature Granulocyte Absolute 0.01 K/mm3 (0.00-0.031); Immature Granulocyte Percent A 0.2 % (0-0.5); Lymphocytes Absolute Auto 1.29 K/mm3 (0.9-3.2); Lymphocytes Percent Auto 23.2 % (18.3-44.2); Mean Corpuscular HGB Conc 33.4 g/dl (32-36); Mean Corpuscular Hemoglobin 30.5 pg (26-34); Mean Corpuscular Volume 91.2 fl (80-100); Mean Platelet Volume 9.8 fl (7.4-10.4); Monocytes Absolute Auto 0.5 K/mm3 (0.1-0.6); Monocytes Percent Auto 8.1 % (2.6-8.5); Neutrophils Absolute Auto 3.7 K/mm3 (1.3-6.7); Neutrophils Percent Auto 66.1 % (45.5-73.1); Platelet Count Result 206 k/mm3 (150-375); Red Blood Count 4.33 M/mm3 (4.6-6.20); Red Cell Distribution Width 14.2 % (11.5-14.5); White Blood Count 5.6 K/mm3 (4.5-10.0)
[2022-02-08 17:49] LABS: INR 1.5; Prothrombin Time 17.4 Seconds (11.1-14.7)
[2022-02-08 17:50] LABS: Partial Thromboplastin Time 33.8 SECONDS (22.3-36.8)
[2022-02-08 17:54] LABS: Alanine Aminotransferase 28 U/L (6-50); Albumin Level 4.2 g/dL (3.5-5.1); Alkaline Phosphatase 73 U/L (38-126); Anion Gap 11 mmol/L (8-16); Aspartate Amino Transferase 29 U/L (17-59); Bilirubin,Total 1.7 mg/dL (0.2-1.3); Blood Urea Nitrogen 23 mg/dL (9-20); Calcium 8.7 mg/dL (8.4-10.2); Carbon Dioxide 27 mmol/L (22-30); Chloride 104 mmol/L (98-107); Estimated CRCL calculation 95 ml/min; Estimated Glomerular Filt Rate > 60; Glucose 106 mg/dL (65-110); Lipase 34 U/L (23-300); Potassium 3.4 mmol/L (3.4-5.0); Sodium 142 mmol/L (137-145)
[2022-02-08 18:04] LABS: Troponin I < 0.012 ng/mL (0.000-0.034)
[2022-02-08] MEDS: hydrALAZINE HCL 20 MG/ML VIAL 10 MG IV PUSH (18:16)
--- NOTE | 2022-02-08 18:38 | ED.GENADULT ---
HPI - General Adult General Chief complaint: Chest Pain Stated complaint: chest pain Time Seen by Provider: 02/08/22 17:02 History of Present Illness HPI narrative: Patient is a 76-year-old male who presents ER with chest pain. Central and aching. Nonradiating. No known alleviating factors. Denies exertional chest pain. No history of heart disease. Patient's blood pressure significantly elevated in the 200s here. Reports he has taken his home antihypertensives. No diaphoresis/nausea/vomiting. No alleviating factors. Related Data Home Medications Medication Instructions Recorded Confirmed aspirin 81 mg tablet,delayed 81 mg PO DAILY 06/05/19 02/08/22 release (Adult Aspirin Regimen) coenzyme Q10 100 mg capsule (Co 100 mg PO DAILY 06/05/19 02/08/22 Q-10) losartan 50 mg tablet 50 mg PO BID 06/05/19 02/08/22 lutein 20 mg capsule 20 mg PO DAILY 06/05/19 02/08/22 omeprazole 20 mg capsule,delayed 20 mg PO DAILY 06/05/19 02/08/22 release pravastatin 20 mg tablet 20 mg PO DAILY 06/05/19 02/08/22 rivaroxaban 20 mg tablet (Xarelto) 20 mg PO DAILY 06/05/19 02/08/22 Alteril 1 cap PO HS 04/10/21 02/08/22 albuterol sulfate 90 mcg/actuation 1 inh inhalation Q4H PRN Shortness 04/10/21 02/08/22 aerosol inhaler (ProAir HFA) Of Breath Or Wheezing Allergies Allergy/AdvReac Type Severity Reaction Status Date / Time hydromorphone Allergy Severe nightmares Verified 02/08/22 13:56 fluticasone Allergy Intermediate Other Verified 02/08/22 13:56 Penicillins Allergy Intermediate Palpitation Verified 02/08/22 13:56 s salmeterol Allergy Intermediate Other Verified 02/08/22 13:56 NSAIDS (Non-Steroidal AdvReac Severe Other Verified 02/08/22 13:56 Anti-Inflamma Review of Systems Review of Systems: All systems reviewed & are unremarkable except as noted in HPI and below Constitutional: Constitutional: Denies chills, Denies fatigue and Denies fever(s) ENT: Denies nasal congestion and Denies sore throat Cardiovascular: Cardiovascular: Reports chest pain, Denies rapid heart rate and Denies radiating jaw, neck or arm pain Respiratory: Respiratory: Denies cough and Denies dyspnea Gastrointestinal: Gastrointestinal: Denies abdominal pain, Denies nausea and Denies vomiting Musculoskeletal: Musculoskeletal: Denies back pain Neurologic: Denies syncope, Denies headache(s), Denies focal weakness and Denies numbness PMFSH Past Medical History Medical History (Updated 02/08/22 @ 19:28 by Luis Alberto Huerta MD) Atrial fibrillation and flutter COPD (chronic obstructive pulmonary disease) Hypertension Iron deficiency anemia Occult blood positive stool Pancreatitis Peripheral vascular disease Peripheral vertigo Polyp of small intestine Transient ischemic attack Surgical History Surgical History History of cholecystectomy (~2013) History of femoropopliteal bypass (~2012) Status post total left knee replacement using cement (~06/07/18) Family History Family History Father Hypertension Mother Hypertension Family history of arthritis Other Family history of heart disease in male family member before age 55 Social History Social History Smoking status: Never smoker Alcohol intake: current Drinks per week: 3 Substance use: never Substance use type: does not use Spiritual care concerns: No Exam Narrative: GENERAL: Well-appearing, well-nourished, and in no acute distress. HEAD: Normocephalic, atraumatic. Neck: Supple. CHEST: Clear to auscultation. No respiratory distress. HEART: Irregular regular rate and rhythm. Normal peripheral pulses. ABDOMEN: Soft, nontender, nondistended. EXTREMITIES: Normal range of motion. No edema. SKIN: Warm, dry, no rash. NEURO: Alert and oriented x3. PSYCH: Normal mood and affect. Course Course
--- NOTE | 2022-02-08 19:00 | PM.IMHP ---
H&P: HPI History of Present Illness Date/Time: 02/08/2022 19:00 Chief Complaint: Chest pain. Narrative: This is a very pleasant 76-year-old male with hypertension, hyperlipidemia, atrial fibrillation on long-term anticoagulation, peripheral vascular disease, and other comorbidities who presented to the emergency department via private vehicle from home for evaluation of chest pain. Upon waking this morning the patient had diffuse aching pain across the anterior chest which was self-limiting and lasted less than 5 minutes. The pain does not radiate and he has not noticed any significant aggravating or alleviating factors. He denied any significant associated symptoms, specifically he denies sweats, nausea, vomiting, and dizziness. As the day has gone on he has had recurrent episodes of this aching pain and he decided to come in for evaluation. Initially he went to urgent care but was immediately referred to the ER. While in the emergency department, being evaluated by emergency physician Dr. Huerta, he noted that the patient's systolic blood pressure was over 200 for which he gave the patient hydralazine 10 mg IV with improvement. This blood pressure was not documented in the chart, however. Readings this high are very unusual for the patient who reports that his blood pressures usually in the 130s to 140s over 80s. At the time of my evaluation he has no specific complaints but does mention that he continues to have intermittent aching discomfort. Review of Systems Review of Systems: Twelve systems were reviewed. No vertigo or dizziness. He denies recent cold and flu symptoms. No fever, chills, or sweats. No sick contacts. No cough or shortness of breath. No orthopnea, PND, or lower extremity edema. He denies abdominal pain, nausea, and vomiting. He was recently started on iron supplementation and he has occasional upset stomach from that. He is occasionally constipated as well. Except as documented, all other systems were reviewed and are negative. [facility] Past Medical History Medical History (Updated 02/09/22 @ 00:45 by Debra Fink PA-C) Atrial fibrillation and flutter Benign prostatic hyperplasia Chronic obstructive pulmonary disease Deep venous thrombosis Gastroesophageal reflux disease Hypertension Iron deficiency anemia Pancreatitis Peripheral vascular disease Peripheral vertigo Polyp of small intestine Transient ischemic attack Surgical History Surgical History (Updated 02/09/22 @ 00:42 by Debra Fink PA-C) History of cataract extraction History of cholecystectomy (~2013) History of colonoscopy with polypectomy History of femoropopliteal bypass (~2012) Status post total left knee replacement using cement (~06/07/18) Family History Family History Father Hypertension Mother Hypertension Family history of arthritis Other Family history of heart disease in male family member before age 55 Social History Social History (Updated 02/09/22 @ 00:42 by Debra Fink PA-C) Social History: Surrogate medical decision maker: Vangie Std, spouse. Code status: Full code. Smoking status: Never smoker Alcohol intake: never Substance use: never Substance use type: does not use Additional living arrangements comments: The patient lives with his in [place]. Occupation/Education: retired Spiritual care concerns: No Meds Home Medications and Allergies Home Medications Medication Instructions Recorded Confirmed Type aspirin 81 mg tablet,delayed 81 mg PO DAILY 06/05/19 02/08/22 History release (Adult Aspirin Regimen) coenzyme Q10 100 mg capsule (Co 100 mg PO DAILY 06/05/19 02/08/22 History Q-10) losartan 50 mg tablet 50 mg PO BID 06/05/19 02/08/22 History lutein 20 mg capsule 20 mg PO DAILY 06/05/19 02/08/22 History omeprazole 20 mg capsule,delayed 20 mg PO DAILY 06/05/19 02/08/22 History release
--- NOTE | 2022-02-08 19:19 | PC.NURSE ---
Assumed care of pt, pt is alert and upright on groundwater monitoring technician. Discussed POC. Pt denies any CP at this time.
[2022-02-08] MEDS: NITROGLYCERIN OINTMENT 1 INCH DOSE TRANSDERM (19:29)
[2022-02-08 20:38] LABS: SARS-CoV-2 RNA PCR Negative
[2022-02-08 20:51] LABS: Troponin I < 0.012 ng/mL (0.000-0.034)
--- NOTE | 2022-02-08 22:17 | ADMGEN ---
This patient, Jean Mcintyre, was admitted to IMU Room 209-01 at 2215. Patient/family oriented to hospital policies and general routines including ID bracelet, bed and alarms, visiting hours, pain management, procedures, bathroom and other care routines, personal items, smoking policy, room service/diet, and visiting hours. Information on how to activate the Rapid Response Team has been discussed. Patient/Family are encouraged to report perceived risks to care and to ask questions if they do not understand what they are told or what they should do.
[2022-02-08 23:45] LABS: Troponin I < 0.012 ng/mL (0.000-0.034)
[2022-02-09] VITALS (17 sets, daily range): BP systolic 136–195; BP diastolic 55–100; PULSE 56–98; RESP 12–20; TEMP 36.3–36.6; O2SAT 95–100
[2022-02-09] MEDS: LOSARTAN POTASSIUM 50 MG TABLET PO ×3 (03:11→20:30)
[2022-02-09] MEDS: HYDROcodone/acetaminophen (*CRX) 5-325 MG TABLET 1 TAB PO (04:02)
--- NOTE | 2022-02-09 04:02 | PC.NURSE ---
patient c/o headache, no chest pain or sob at this time. removed nitro paste that was on chest and gave medication for headache.
[2022-02-09] MEDS: hydrALAZINE HCL 20 MG/ML VIAL 10 MG IV PUSH (09:09)
[2022-02-09] MEDS: ASPIRIN 81 MG ENTERIC TABLET PO (09:10)
[2022-02-09] MEDS: PANTOPRAZOLE 40 MG TABLET PO (09:10)
[2022-02-09] MEDS: PRAVASTATIN SODIUM 20 MG TABLET PO (09:11)
[2022-02-09] MEDS: carvediloL 6.25 MG TABLET PO ×2 (09:11→20:30)
[2022-02-09] MEDS: MONTELUKAST SODIUM 10 MG TABLET PO (09:11)
[2022-02-09] MEDS: FERROUS SULFATE 324 MG TABLET PO ×2 (09:12→17:21)
[2022-02-09] MEDS: RIVAROXABAN 20 MG TABLET PO (09:12)
[2022-02-09] MEDS: FLUTICASONE PROPIONATE 0.05% NA SPR 16 GM BTL (*BKC) 1 SPRAY NASAL (09:13)
[2022-02-09] MEDS: hydroCHLOROthiazide 25 MG TABLET PO (09:24)
--- NOTE | 2022-02-09 10:04 | PM.CNCAR ---
Assessment and Plan Assessment and plan (1) Chest pain: Code(s): R07.9 - Chest pain, unspecified Status: Acute Assessment and Plan: Resolved spontaneously and controlled initially with improved blood pressure. Some atypical occurring at rest without provocation no exacerbation with activity, position. No other associated symptoms. No significant changes on EKG suggest myocardial ischemia. Patient ruled out for myocardial infarction with negative serial cardiac enzymes. I suspect his chest pain is predominantly related to hypertensive urgency currently pain-free. -BP control and optimization of oral antihypertensive regimen. -2D echocardiogram to assess LV size/function, valve pathology, wall motion abnormalities and pulmonary pressures. Recommendation to follow. If LV function wall motion intact in patient remains pain-free with controlled blood pressure with systolic blood pressure less than 150 mm Hg patient stable for discharge home with the next 24-48 hours. Recommendation follow after review. -discussed may pursue noninvasive ischemic evaluation as an outpatient if patient remains asymptomatic and without new unexpected LV dysfunction or wall motion abnormalities. Patient verbalized understanding and agreed with plan of care. Further recommendation to follow. (2) Hypertensive urgency: Code(s): I16.0 - Hypertensive urgency Status: Acute Assessment and Plan: As above, BP poorly controlled presentation. Try to minimize p.r.n. IV antihypertensives nor to adequately optimize oral regimen. -Continue losartan 50 mg twice daily. -Increase hydrochlorothiazide to 25 mg daily. -Anticipate addition of amlodipine 5 mg daily as tolerated. Check BP after receiving remainder of his oral medications and IV hydralazine for further recommendations. (3) Chronic atrial fibrillation: Code(s): I48.20 - Chronic atrial fibrillation, unspecified Status: Acute Assessment and Plan: Heart rate controlled on carvedilol 6.25 mg twice daily. Continue rivaroxaban 20 mg at bedtime. (4) Hyperlipidemia: Qualifiers: Hyperlipidemia type: mixed hyperlipidemia Qualified Code(s): E78.2 - Mixed hyperlipidemia Code(s): E78.5 - Hyperlipidemia, unspecified Status: Acute Assessment and Plan: Continue Pravastatin 20 mg at bedtime (5) Chronic anticoagulation: Code(s): Z79.01 - long-term (current) use of anticoagulants Status: Acute Assessment and Plan: Continue paroxetine 20 mg at bedtime. (6) Iron deficiency anemia: Code(s): D50.9 - Iron deficiency anemia, unspecified Status: Acute Assessment and Plan: H&H stable. Continue to monitor. He remains on aspirin and rivaroxaban for history of history of TIA and atrial fibrillation, respectively. History of Present Illness History of Present Illness Consult date/time: Date of service: 02/09/22 10:04 Requesting physician: Debra Fink PA-C Consult reason: chest pain and hypertension Reason For Visit: Hypertensive Urgency, Chest Pain Narrative: Patient is a very pleasant 76-year-old gentleman well known to me who has a past medical history significant for hypertension, hyperlipidemia and persistent longstanding atrial fibrillation, peripheral arterial disease who presented to the emergency department with recurrent chest pain. Patient states morning presentation he woke with diffuse aching type chest discomfort which persisted and then resolved spontaneously in less than 5 minutes. Patient denied associated shortness of breath, nausea, diaphoresis or dizziness. He admitted to headache intermittently. Patient had not checked his blood pressure. The symptoms occurred off and on without provocation and no noted aggravating or relieving factors. He does not experience similar symptoms prior to morning of presentation. He presented to urgent care with complaints of chest pain for whi
--- NOTE | 2022-02-09 10:11 | ECHO_ITS ---
Patient Info Name: Jean Mcintyre Age: 76 years : 1945 Gender: Male Ht: 75 in Wt: 251 lbs BSA: 2.48 m2 HR: 68 bpm BP: 180 / 96 mmHg Heart Rhythm: Atrial Fibrillation Technical Quality: Good Exam Date: 02/09/2022 11:53 AM Exam Location: [facility] Pulmonary Exam Room: 209 Patient Status: Inpatient Admit Date: 02/08/2022 Staff Ordering Physician: Cachorro Sabillon MD [employer] Clocks Repairer: Jocy Ignacio RDCS Attending Provider: Sydney Waters Referring Physician: Ridge GAGNON; Exam Type: CA echo doppler color flow Study Info Indications - chest pain hypertensive urgency Complete two-dimensional, color flow and Doppler transthoracic echocardiogram is performed. Summary 1. Complete two-dimensional, color flow and Doppler transthoracic echocardiogram is performed. 2. Left ventricular chamber dimension is normal. 3. Left ventricular systolic function is normal, estimated at 65-70%. 4. There is moderately increased left ventricular wall thickness. 5. Left atrial chamber dimension is severely enlarged. 6. Right atrial chamber dimension is severely enlarged. 7. There is no aortic valve stenosis. 8. There is mild aortic valve regurgitation. 9. There is mild tricuspid valve regurgitation. 10. Mild pulmonary hypertension, estimated pulmonary arterial systolic pressure is 39 mmHg. Left Ventricle Left ventricular chamber dimension is normal. Left ventricular systolic function is normal, estimated at 65-70%. There is moderately increased left ventricular wall thickness. The left ventricular diastolic function is indeterminate. Right Ventricle Right ventricular chamber dimension is normal. Right ventricular systolic function is normal. Left Atria Left atrial chamber dimension is severely enlarged. Right Atria Right atrial chamber dimension is severely enlarged. Aortic Valve The aortic valve is trileaflet. There is no aortic valve stenosis. There is mild aortic valve regurgitation. Pulmonic Valve The pulmonic valve is not well visualized. Mitral Valve The mitral valve has thickened leaflets. There is trace mitral valve regurgitation. The mitral valve annulus is mildly calcified. Tricuspid Valve The tricuspid valve leaflets are normal. There is mild tricuspid valve regurgitation. Mild pulmonary hypertension, estimated pulmonary arterial systolic pressure is 39 mmHg. Pericardium/Pleural The pericardium appears normal. There is trivial pericardial effusion. Inferior Vena Cava Normal inferior vena cava with >50% collapse upon inspiration consistent with elevated right atrial pressure, 10 mmHg. Aorta The aortic root size at the sinus of Valsalva is normal. There is mild aortic atherosclerosis. Left Ventricular Outflow Tract Name Value Normal LVOT 2D LVOT Diameter 2.1 cm LVOT Doppler LVOT Peak Gradient 4 mmHg LVOT Mean Gradient 2 mmHg LVOT VTI 23 cm LVOT VTI/AV VTI Ratio 0.9 LVOT Stroke Volume 81 ml
--- NOTE | 2022-02-09 12:20 | PM.IMPN ---
Progress Note: A&P Assessment and Plan (1) Chest pain: Code(s): R07.9 - Chest pain, unspecified Status: Acute Assessment and Plan: - Pt. stable on Telemetry. - Cardiology consulted and AMI ruled out with negative serial troponins. - ECHO today. - Continue BP meds and consider increasing dosages as needed. - No current CP present. (2) Hypertension: Code(s): I10 - Essential (primary) hypertension Status: Acute Assessment and Plan: - Continue home medications of Carvedilol 6.25 mg po BID, Losartan 50 mg po BID, and HCTZ. - Increase HCTZ from 12.5 mg daily to 25 mg daily. - PRN Hydralazine 10 mg Q8 hrs prn for SBP>180 and DBP>90. - Continue to monitor BP. (3) Hyperlipidemia: Qualifiers: Hyperlipidemia type: mixed hyperlipidemia Qualified Code(s): E78.2 - Mixed hyperlipidemia Code(s): E78.5 - Hyperlipidemia, unspecified Status: Acute Assessment and Plan: - Continue statin, LFTs within normal limits. (4) Chronic atrial fibrillation: Code(s): I48.20 - Chronic atrial fibrillation, unspecified Status: Acute Assessment and Plan: - He is rate controlled on carvedilol. (5) Iron deficiency anemia: Code(s): D50.9 - Iron deficiency anemia, unspecified Status: Acute Assessment and Plan: - Continue iron supplementation. (6) Chronic obstructive pulmonary disease: Code(s): J44.9 - Chronic obstructive pulmonary disease, unspecified Status: Acute Assessment and Plan: - No acute issues. Continue maintenance inhalers. Time Spent With Patient Time with patient: 15 - 25 minutes Subjective Date/time seen: 02/09/22 1030 This pleasant 76 year old male patient is examined today in interval assessment from being admitted with suboptimal BP control and CP. He has since been ruled out for an acute MO despite what appeared to initially be EKG changes. Cardiology evaluated patient and they are of the opinion that the Q-waves are actually an incomplete BBB. He is having an ECHO today. Currently he has no CP, dyspnea, N/V/D or any other complaints to speak of. Review of Systems Review of Systems: All systems reviewed & are unremarkable except as noted in HPI and below Exam Const: General: comfortable and no acute distress Other: Pleasant, male patient sitting on the side of the bed at this time eating. He denies any acute CP or dyspnea at this time. HENMT: Ears: TM's normal bilaterally General nose exam: Normal nares present and no epistaxis Mouth: Yes moist mucous membranes Eyes: General: appearance normal, both eyes and all related structures Sclera: sclerae normal and normal sclerae Pupils: Equal, round and reactive pupils present EOM: EOM not intact bilaterally Neck: Neck: supple and no JVD Thyroid: thyroid normal Carotids: no bruits Lymphatic: lymphadenopathy not noted Resp: Effort & Inspection: normal respiratory effort Auscultation: clear to auscultation bilaterally Cardio: Rate: regular rate Rhythm: regular rhythm Heart sounds: no gallops, no murmurs and no rubs GI: Inspection: non-distended GI Palp: Yes Soft to palpation, No Tenderness to palpation present (GI) and No Guarding due to palpation present (GI) Skin: General skin exam: normal color and no rashes or lesions noted Lesions: no lesions noted Rashes: no rashes noted Wounds: no wounds Neuro: General: gait normal Speech: normal speech Motor exam (neuro): 5/5 motor strength present throughout and Normal motor muscle tone present throughout Sensory Exam: normal sensation Extrem: General: normal to inspection, no edema and no pedal edema Other: MAEW Psych: Mental Status: mental status grossly normal Affect: normal affect Objective Data Vital Signs Vital Signs: Vital Signs - 24 hr 02/08/22 15:14 02/08/22 19:17 02/08/22 19:18 Temperature 97.0 F L Pulse Rate 77 69 70 Respiratory Rate 16 15 Blood Pre
[2022-02-09] MEDS: amLODIPine BESYLATE 5 MG TABLET PO (14:10)
--- NOTE | 2022-02-09 17:04 | PC.NURSE ---
This patient, Jean Mcintyre, was transferred to [facility] on 02/09/22 at 1704. Personal belongings sent with patient. Report given to Luna VENEGAS. Appropriate documentation sent with patient.
--- NOTE | 2022-02-09 17:18 | PC.NURSE ---
This patient, Jean Mcintyre, was received from [[facility] ] on 02/09/22 at 1713. Patient/family oriented to unit policies and routines
[2022-02-09] MEDS: TERAZOSIN HCL 5 MG CAPSULE PO (20:30)
[2022-02-10] VITALS: PULSE 63
[2022-02-10 04:00] VITALS: PULSE 64
[2022-02-10 05:15] VITALS: BP 150/77; PULSE 64; RESP 20; TEMP 36.3; O2SAT 98
[2022-02-10 05:54] LABS: Basophils Percent Auto 0.3 % (0.2-1.2); Eosinophils Absolute Auto 0.2 K/mm3 (0-0.3); Eosinophils Percent Auto 2.3 % (0-4.4); Hematocrit 39.6 % (42.0-52.0); Hemoglobin 12.8 g/dL (14.0-18.0); Immature Granulocyte Absolute 0.01 K/mm3 (0.00-0.031); Immature Granulocyte Percent A 0.2 % (0-0.5); Lymphocytes Percent Auto 19.9 % (18.3-44.2); Mean Corpuscular HGB Conc 32.3 g/dl (32-36); Mean Corpuscular Hemoglobin 29.7 pg (26-34); Mean Corpuscular Volume 91.9 fl (80-100); Mean Platelet Volume 10.4 fl (7.4-10.4); Monocytes Absolute Auto 0.7 K/mm3 (0.1-0.6); Monocytes Percent Auto 10.9 % (2.6-8.5); Neutrophils Absolute Auto 4.3 K/mm3 (1.3-6.7); Neutrophils Percent Auto 66.4 % (45.5-73.1); Platelet Count Result 210 k/mm3 (150-375); Red Blood Count 4.31 M/mm3 (4.6-6.20); Red Cell Distribution Width 14.3 % (11.5-14.5); White Blood Count 6.5 K/mm3 (4.5-10.0)
[2022-02-10 06:07] LABS: Alanine Aminotransferase 24 U/L (6-50); Albumin Level 3.8 g/dL (3.5-5.1); Alkaline Phosphatase 73 U/L (38-126); Anion Gap 8 mmol/L (8-16); Aspartate Amino Transferase 26 U/L (17-59); Bilirubin,Total 1.9 mg/dL (0.2-1.3); Blood Urea Nitrogen 16 mg/dL (9-20); Calcium 8.3 mg/dL (8.4-10.2); Carbon Dioxide 30 mmol/L (22-30); Chloride 102 mmol/L (98-107); Estimated CRCL calculation 95 ml/min; Estimated Glomerular Filt Rate > 60; Glucose 107 mg/dL (65-110); Potassium 3.1 mmol/L (3.4-5.0); Sodium 140 mmol/L (137-145)
[2022-02-10 08:00] VITALS: PULSE 80
--- NOTE | 2022-02-10 09:58 | PM.PNCARD ---
Progress Note: A&P Assessment and Plan (1) Chest pain: Code(s): R07.9 - Chest pain, unspecified Status: Acute Assessment and Plan: Resolved spontaneously and controlled initially with improved blood pressure. Some atypical occurring at rest without provocation no exacerbation with activity, position. No other associated symptoms. No significant changes on EKG suggest myocardial ischemia. Patient ruled out for myocardial infarction with negative serial cardiac enzymes. Chest pain likely related to hypertension. -BP control and optimization of oral antihypertensive regimen. -Echo shows normal LV systolic function and no RWMA. -BP better controlled this morning with addition of amlodipine -OK for discharge today with follow up in the office with Dr. Sabillon in one month. -Possible outpatient stress test to be discussed at follow up (2) Hypertensive urgency: Code(s): I16.0 - Hypertensive urgency Status: Acute Assessment and Plan: As above, BP poorly controlled presentation. Try to minimize p.r.n. IV antihypertensives nor to adequately optimize oral regimen. -Continue losartan 50 mg twice daily. -Increase hydrochlorothiazide to 25 mg daily. -Continue amlodipine 5mg daily (3) Chronic atrial fibrillation: Code(s): I48.20 - Chronic atrial fibrillation, unspecified Status: Acute Assessment and Plan: Heart rate controlled on carvedilol 6.25 mg twice daily. Continue rivaroxaban 20 mg at bedtime. (4) Hyperlipidemia: Qualifiers: Hyperlipidemia type: mixed hyperlipidemia Qualified Code(s): E78.2 - Mixed hyperlipidemia Code(s): E78.5 - Hyperlipidemia, unspecified Status: Acute Assessment and Plan: Continue Pravastatin 20 mg at bedtime (5) Chronic anticoagulation: Code(s): Z79.01 - rn long term care (current) use of anticoagulants Status: Acute Assessment and Plan: Continue paroxetine 20 mg at bedtime. (6) Iron deficiency anemia: Code(s): D50.9 - Iron deficiency anemia, unspecified Status: Acute Assessment and Plan: H&H stable. Continue to monitor. He remains on aspirin and rivaroxaban for history of history of TIA and atrial fibrillation, respectively. Subjective Date/time seen: 02/10/22 09:58 Cardiology follow up for chest pain, HTN Interval history: Feeling well this morning and is asymptomatic. No further chest pain. BP better controlled this morning. Review of Systems Review of Systems: All systems reviewed & are unremarkable except as noted in HPI and below Constitutional: Constitutional: Reports as per HPI and Reports no additional constitutional complaints Eyes: Eyes: Reports as per HPI and Reports no additional eye complaints ENT: Reports system reviewed and no additional complaints, except as documented and Reports as per HPI Cardiovascular: Cardiovascular: Reports as per HPI and Reports no additional cardiovascular complaints Respiratory: Respiratory: Reports as per HPI and Reports no additional respiratory complaints Gastrointestinal: Gastrointestinal: Reports as per HPI and Reports no additional gastrointestinal complaints Genitourinary: Genitourinary: Reports no additional male genitourinary complaints and Reports as per HPI Musculoskeletal: Musculoskeletal: Reports no additional musculoskeletal complaints and Reports as per HPI Integumentary/Breasts: Skin/Breast: Reports system reviewed and no additional complaints, except as docu and Reports as per HPI Neurologic: Reports system reviewed and no additional complaints, except as documented and Reports as per HPI Psychiatric: Psychiatric: Reports no additional psychiatric complaints and Reports as per HPI Endocrine: Endocrine: Reports no additional endocrine complaints and Reports as per HPI Hematologic/Lymphatic: Hematologic/Lymphatic: Reports no additional hematologic/lymphatic complaints and Reports as per HPI Allergic/Immu
[2022-02-10] MEDS: FLUTICASONE PROPIONATE 0.05% NA SPR 16 GM BTL (*BKC) 1 SPRAY NASAL (10:02)
[2022-02-10] MEDS: amLODIPine BESYLATE 5 MG TABLET PO (10:03)
[2022-02-10] MEDS: PRAVASTATIN SODIUM 20 MG TABLET PO (10:03)
[2022-02-10] MEDS: RIVAROXABAN 20 MG TABLET PO (10:03)
[2022-02-10] MEDS: FERROUS SULFATE 324 MG TABLET PO (10:03)
[2022-02-10] MEDS: MONTELUKAST SODIUM 10 MG TABLET PO (10:03)
[2022-02-10] MEDS: PANTOPRAZOLE 40 MG TABLET PO (10:04)
[2022-02-10] MEDS: carvediloL 6.25 MG TABLET PO (10:04)
[2022-02-10] MEDS: ASPIRIN 81 MG ENTERIC TABLET PO (10:05)
[2022-02-10] MEDS: hydroCHLOROthiazide 25 MG TABLET PO (10:05)
[2022-02-10] MEDS: LOSARTAN POTASSIUM 50 MG TABLET PO (10:05)
--- NOTE | 2022-02-10 10:24 | PM.DS ---
DS: Admitting Diagnosis Discharge Date 02/10/2022 Admitting Diagnosis Chest pain, Hyperlipidemia, Chronic Atrial Fibrillation, Iron deficiency anemia, COPD, DS: Discharge Diagnosis Discharge Diagnosis (1) Chest pain: Code(s): R07.9 - Chest pain, unspecified Status: Acute Assessment and Plan: - Pt. has remained stable on telemetry and an AMI was ruled out. He has had his BP meds adjusted, remains asymptomatic and is stable for discharge at this time with Cardiology follow up. - ECHO demonstrates normal LVSF, EF of 65-70%, and no Aortic stenosis. (2) Hypertension: Code(s): I10 - Essential (primary) hypertension Status: Acute Assessment and Plan: - Continue home medications of Carvedilol 6.25 mg po BID, Losartan 50 mg po BID, and increase HCTZ to 25 mg daily. - Add Norvasc 5 mg po daily to regimen. (3) Hyperlipidemia: Qualifiers: Hyperlipidemia type: mixed hyperlipidemia Qualified Code(s): E78.2 - Mixed hyperlipidemia Code(s): E78.5 - Hyperlipidemia, unspecified Status: Acute Assessment and Plan: - Continue statin, LFTs within normal limits. (4) Chronic atrial fibrillation: Code(s): I48.20 - Chronic atrial fibrillation, unspecified Status: Acute Assessment and Plan: - He is rate controlled on carvedilol. (5) Iron deficiency anemia: Code(s): D50.9 - Iron deficiency anemia, unspecified Status: Acute Assessment and Plan: - Continue iron supplementation. (6) Chronic obstructive pulmonary disease: Code(s): J44.9 - Chronic obstructive pulmonary disease, unspecified Status: Acute Assessment and Plan: - No acute issues. Continue maintenance inhalers. DS: Summary Hospital Course Reason for hospitalization: Chest Pain Hospital Course: This 76-year-old male patient with significant past medical history of hypertension, hyperlipidemia, atrial fibrillation on long-term anticoagulation with Xarelto, peripheral vascular disease presented to the emergency room on 02/08/2022 with complaints of having chest pain. The pain was diffuse across the precordium and due to history he was admitted to the hospital for rule out and cardiology evaluation. Acute MN was ruled out with troponins serially and EKGs. His blood pressure however remain significantly elevated requiring multiple doses of IV hydralazine. Echocardiogram was performed during this hospitalization that showed a normal left ventricular systolic function with preserved ejection fraction and no aortic valve stenosis. Cardiology has arranged to follow-up with patient in their office in March and has adjusted the blood pressure medications as follows: Patient will remain on losartan 50 mg p.o. b.i.d., carvedilol 6.25 mg p.o. b.i.d., hydrochlorothiazide is increased to 25 mg p.o. daily and there is the addition of amlodipine 5 mg p.o. daily. This combination of medications has controlled the patient's blood pressure well and he is asymptomatic at this time. It will be discussed in follow-up in Cardiology office the next step of potential stress testing. Status at Discharge Functional status at discharge: independent ambulation Overall status at discharge: patient is back to baseline Time Spent with Patient Time attestation: Total time spent providing and/or coordinating discharge services: Time spent: Greater than 30 minutes Exam Const: General: comfortable and no acute distress HENMT: General nose exam: Normal nares present Mouth: Yes moist mucous membranes Eyes: General: appearance normal, both eyes and all related structures Sclera: sclerae normal Pupils: Equal, round and reactive pupils present EOM: EOMs intact bilaterally Neck: Neck: supple and no JVD Thyroid: thyroid normal Carotids: no bruits Lymphatic: lymphadenopathy not noted Resp: Effort & Inspection: normal respiratory effort Auscultation: clear to auscultati
== END 2022-02-10 11:58 | disposition home or self-care (01) ==
LOC: ANHED 19:28 → ANHIMU 21:41 → ANH2MED 02-09 17:06
PROVIDERS: Admitting Provider Internal Medicine; Emergency Provider Emergency Medicine; PCP Hospitalist; Visit Provider Nurse Practitioner Adult Health
DX: R07.9 Chest pain, unspecified (principal); I10 Essential (primary) hypertension; E78.2 Mixed hyperlipidemia; I48.20 Chronic atrial fibrillation, unspecified; D50.9 Iron deficiency anemia, unspecified; J44.9 Chronic obstructive pulmonary disease, unspecified; I73.9 Peripheral vascular disease, unspecified; I48.92 Unspecified atrial flutter; I16.0 Hypertensive urgency; K21.9 Gastro-esophageal reflux disease without esophagitis; I08.1 Rheumatic disorders of both mitral and tricuspid valves; I27.20 Pulmonary hypertension, unspecified; Z86.718 Personal history of other venous thrombosis and embolism; Z95.820 Peripheral vascular angioplasty status with implants and grafts; Z86.73 Personal history of transient ischemic attack (TIA), and cerebral infarction without residual deficits; Z82.49 Family history of ischemic heart disease and other diseases of the circulatory system; Z79.51 Long term (current) use of inhaled steroids; Z79.01 Long term (current) use of anticoagulants; Z79.82 Long term (current) use of aspirin; Z79.899 Other long term (current) drug therapy
CPT/HCPCS: 36415; 71046; 80053; 83690; 83735; 84484; 85025; 85610; 85730; 93005; 93306; 96374; 96376; 99285; A9270; C9803; G0378; J0360; U0003; U0005

== ENCOUNTER 2024-06-15 09:45 | Outpatient (CLI) | payer MEDICARE, SELFPAY ==
--- NOTE | 2024-06-28 12:10 | WPDSLEEPSTUD ---
Sleep Study Date of Study: 06/15/24 Ordering Provider: Elizabeth Amos Interpreting Physician: Aide Menendez MD Sleep Study Type: Polysomnogram Height: 1.91 m Weight: 117.934 kg Body Mass Index: 32.5 Neck Circumference (inches): 17 [place]: 4 Reason for Sleep Study Excessive daytime sleepiness, daytime naps Sleep History Jean Mcintyre is a 78-year-old man who has been excessively sleepy for several years. The patient has hypertension which is controlled with medication, and he has asthma. He does not awaken from sleep feeling short of breath. He occasionally awakens at night with heartburn, belching or coughing. He rarely snores. He does not have difficulty sleeping when he has a cold. He does not wake up suddenly gasping for breath at night. He does not have breathing problems witnessed by others while he sleeps. He does not sweat excessively at night. He occasionally notices his heart pounding or beating irregularly, he has atrial fibrillation. He occasionally falls asleep during the day however never falls asleep involuntarily. He does not have loss of muscle tone with strong emotion. He is retired, does not have daytime difficulties due to excessive sleepiness. He does not feel paralyzed on waking or falling asleep, nor does he have vivid dreamlike scenes upon waking or falling asleep. He does not feel afraid to go to sleep. He does not have nightmares. He occasionally remembers his dreams. He rarely has racing thoughts. He does not feel sad, depressed, or anxious. He does not notice parts of his body jerking. He does not kick at night. He occasionally has crawling and aching feelings in his legs. He frequently has leg pain during the night. He does not have morning jaw pain nor does he grind his teeth at night. He frequently is bothered by pain during the day, frequently awakened by pain during the night. He rarely wakes up feeling stiff in the morning. He occasionally wakes up with sore achy muscles and pain in the neck and spine. Normal bedtime is 10:00 p.m., falling asleep within 5-10 minutes, typically waking twice at night for 4-5 minutes, long enough to go to the bathroom and returns to sleep. His normal wake time is 6:30 a.m.. He keeps the same schedule on weekends. He reports getting 8-1/2 hours of sleep at night. He takes naps in the afternoon or evening. A short nap lasting 10-15 minutes may be refreshing. He is usually drowsy for 1 hour after waking. He feels better in the evening compared to other times of day. His medication list shows that he uses Alteril 1 at night, a supplemental sleep aid. Habits:??Tobacco: Never smoker Caffeine: 12 oz diet Pepsi, 3 per day Alcohol:none Recreational substances: none [facility] Past Medical History Medical History Benign prostatic hyperplasia Gastroesophageal reflux disease Deep venous thrombosis Chronic obstructive pulmonary disease Polyp of small intestine Iron deficiency anemia Pancreatitis Peripheral vertigo Atrial fibrillation and flutter Transient ischemic attack Peripheral vascular disease Hypertension Surgical History Surgical History History of cataract extraction History of colonoscopy with polypectomy History of cholecystectomy (~2013) History of femoropopliteal bypass (~2012) Status post total left knee replacement using cement (~06/07/18) Family History Family History Father Hypertension Mother Hypertension Family history of arthritis Other Family history of heart disease in male family member before age 55 Social History Social History Social History: Surrogate medical decision maker: Vangie Mcintyre, spouse. Code status: Full code. Smoking status: Never smoker Alcohol intake: never Substance use: never Substance use type: does not use Living arrangements: with family Additional living arrangements comments: The patient lives with his in [place]. Occupation/Education: retired Spiritual care concerns: No Medications Home Medications ?Medication ?Instructions ?Recorded ?Confirmed ?Type aspirin 81 mg tablet,delayed 81 mg PO DAILY 06/05/19 02/08/22 History release (Adult Aspirin Regimen) coenzyme Q10 100 mg capsule (Co 100 mg PO DAILY 06/05/19 02/08/22 History Q-10) lutein 20 mg capsule 20 mg PO DAILY 06/05/19 02/08/22 History omeprazole 20 mg capsule,delayed 20 mg PO DAILY 06/05/19 02/08/22 History release pravastatin 20 mg tablet 20 mg PO DAILY 06/05/19 02/08/22 History rivaroxaban 20 mg tablet (Xarelto) 20 mg PO DAILY 06/05/19 02/08/22 History fluticasone propionate 50 1 spray intranasal DAILY #15.8 mL 06/22/19 02/08/22 Rx mcg/actuation nasal spray,suspension (Allergy Relief (fluticasone)) montelukast 10 mg tablet 10 mg PO DAILY #90 tabs 12/20/20 02/08/22 Rx Alteril 1 cap PO HS 04/10/21 02/08/22 History albuterol sulfate 90 mcg/actuation 1 inh inhalation Q4H PRN Shortness 04/10/21 02/08/22 History aerosol inhaler (ProAir HFA) Of Breath Or Wheezing carvedilol 6.25 mg tablet 6.25 mg PO BID #180 tabs 10/27/21 02/08/22 Rx ferrous sulfate 325 mg (65 mg 325 mg PO BID #180 tabs 10/29/21 02/08/22 Rx iron) tablet terazosin 5 mg capsule 5 mg PO HS #90 caps 01/26/22 02/08/22 Rx Symbicort 80 mcg-4.5 mcg/actuation 2 puff inhalation BID #10.2 grams 02/02/22 02/08/22 Rx HFA aerosol inhaler (budesonide-formoterol) amlodipine 5 mg tablet (Norvasc) 5 mg PO QAM #30 tabs 02/10/22 Rx hydrochlorothiazide 25 mg tablet 25 mg PO QAM #30 tabs 02/10/22 Rx losartan 50 mg tablet (Cozaar) 50 mg PO Q12HR #60 tabs 02/10/22 Rx Sleep Procedure A split night polysomnogram using the [employer] multi-channel system recorded the standard physiologic parameters including EEG, EOG, submentalis EMG, anterior tibialis EMG, EKG, body position, nasal and oral airflow using nasal pressure sensor and thermistor. Respiratory parameters of chest and abdominal movements were recorded with Respiratory Inductance Plethysmography belts. Oxygen saturation was recorded by pulse oximetry. Video monitoring was also performed. Sleep stages, periodic limb movements, and EEG arousals were scored in 30 second epochs according to the criteria of the AASM Scoring Manual. The Apnea-Hypopnea Index was calculated using CMS guidelines for definition of hypopnea while scoring respiratory events. The patient was scheduled for a split night study however he did not meet criteria using a 4% CMS criteria so this was conducted as a basic nocturnal polysomnogram. The patient declined to sleep in the supine position, saying that he does not sleep supine at home. During the study, the patient had atrial fibrillation with occasional PVCs. Sleep Architecture The total recording time was 423.0 minutes. The total sleep time was 336.0 minutes. Sleep latency was 5.3 minutes. REM latency was 131.0 minutes. Sleep efficiency was 79.4%. The patient had 36 awakenings for an awakening index of 6.4. Wake after sleep onset time was 82.0 minutes. The patient spent 32.5 minutes, 9.7% of total sleep time in Stage N1. The patient spent 241.0 minutes, 71.7% in Stage N2. The patient spent no time in Stage N3. The patient spent 62.5 minutes, 18.6% in Stage REM sleep. Respiratory Analysis The patient had 18 hypopneas, no obstructive apneas, mixed apneas, or central apneas for an overall Apnea Hypopnea Index of 3.2 using the CMS 4% criteria. The REM Apnea Hypopnea Index was 26.9. The NREM Apnea Hypopnea Index was 0.7. The patient had a Central Apnea Hypopnea Index of 0. There were no Respiratory Effort Related Arousals. The Respiratory Disturbance Index is 11.1 events per hour. There was no evidence of Deven-Gonzalez Respirations. Arousals There were 127 total arousals for an arousal index of 22.7. There were 39 spontaneous arousals for an index of 7.0. There were 26 arousals due to respiratory events for an index of 4.6. There were 38 arousals due to periodic limb movements for an index of 6.8. There were 24 arousals due to isolated limb movements for an index of 4.3. Periodic Limb Movements The patient had 47 isolated limb movements with an index of 8.4. The patient had 281 periodic limb movements with an index of 50.2. Patient had a total of 328 limb movements with a total limb movement index of 58.6. Oximetry Data The patient had an average oxygen saturation of 89.8% in sleep with a minimum oxygen saturation of 85% and a maximum oxygen saturation of 94%. The patient had 19 oxygen desaturations that were 4% or greater resulting in an Oxygen Desaturation Index of 3.4. The patient spent 26.6 minutes, 6.4% of total sleep time with an oxygen saturation below 88%. Snoring Profile Snoring was mild to moderate throughout the night. Cardiac Profile EKG showed atrial fibrillation, average heart rate 54.8, minimum pulse 39 and maximum pulse 82 beats per minute. Occasional PVCs were noted. EEG Profile EEG was unremarkable, no evidence of seizures. Assessment and Plan Assessment and Plan (1) Nocturnal hypoxemia: Code(s): G47.34 - Idiopathic sleep related nonobstructive alveolar hypoventilation Status: Acute Assessment and Plan: This basic nocturnal polysomnogram on 06/15/2024 shows an apnea-hypopnea index of 3.2 using the 4% desaturation criteria by the CMS, desaturation to 85%, 26.6 minutes or 6.4% the study spent below 88%. An apnea-hypopnea index of 3.2 is within the normal range, ruling out obstructive sleep apnea. He spent more than 20 minutes below 88%, and this is consistent with nocturnal hypoxemia. He qualifies for nocturnal oxygen. I recommend oxygen 2 liters/minute with sleep and a nocturnal oximetry wearing 2 L /minute to confirm that this is sufficient to maintain his saturation above 88% while asleep. The patient had [id number] snoring. Although he had excessive limb movements, the periodic limb movement index was 58.6 per hour, he did not have an elevated limb movement arousal index. He has occasional sensation of uncomfortable feelings in his legs. His ferritin was low, 13 ng/mL on 07/25/2021. Consider rechecking this as part of management of restless legs. BMI is 32.5. Weight management is advised. Clinical data suggests that weight loss of 10% can reduce the severity of respiratory events and snoring and improve AHI by .l as much as 25%. Data The data obtained during this sleep study is adequate for interpretation. Certification This sleep study has been reviewed by a board certified sleep medicine physician.
[2024-06-29 14:13] VITALS: BMI 32.5
== END 2024-06-16 06:35 | disposition home or self-care (01) ==
PROVIDERS: PCP Hospitalist
DX: G47.34 Idiopathic sleep related nonobstructive alveolar hypoventilation (principal); G47.33 Obstructive sleep apnea (adult) (pediatric)
CPT/HCPCS: 95810